=== PATIENT | female | born 1970 | race Caucasian/White ===

== ENCOUNTER → 2022-12-11 13:16 | Outpatient (CLI) | payer BC, SELFPAY ==
--- NOTE | ~2022-12-11 | US_ITS ---
Pelvic ultrasound. Clinical History: Postmenopausal bleeding Technique: Realtime transabdominal and transvaginal scanning of the pelvis was performed. Color flow Doppler and Doppler spectral analysis were performed. Findings: The uterus is anteverted. The endometrial stripe has a thickness of approximately 15 mm. S uture large mass towards the lower uterine segment, measuring approximately 6.6 cm in diameter, which could reflect a large fibroid. Noted ovary seen. No adnexal mass seen. There is no evidence of free fluid in the cul de sac. Impression: Somewhat suboptimal exam, related to body habitus. Suspected large lower uterine segment fibroid versus other mass, measuring approximately 6.6 cm in di ameter. Possible endometrial thickening up to 14 mm, which could reflect endometrial hyperplasia versus endom etrial neoplasm. Consider pelvic MR to better assess for uterine pathology given the suboptimal imaging on this exam. Reviewed, dictated and finalized at [facility]. Impression: Somewhat suboptimal exam, related to body habitus. Suspected large lower uterine segment fibroid versus other mass, measuring appr oximately 6.6 cm in diameter. Possible endometrial thickening up to 14 mm, which could reflect endometrial hy perplasia versus endometrial neoplasm. Consider pelvic MR to better assess for uterine pathology given the suboptimal imaging on this exam.
== END ==
PROVIDERS: PCP Nurse Practitioner; Visit Provider Nurse Practitioner
DX: N95.0 Postmenopausal bleeding (principal); N85.2 Hypertrophy of uterus
CPT/HCPCS: 76830

== ENCOUNTER 2022-12-27 02:10 | Day surgery (SDC) | payer BC, SELFPAY ==
[2022-12-20 10:29] VITALS: BMI 33.6
--- NOTE | 2022-12-20 10:33 | PC.NURSE ---
Report to the Outpatient Waiting Room, entrance under the green pavilion located off [facility], at time 12:00 on date 12/27/22. Planned Procedure Time: 2:00. Time changes happen often and if your time is changed the preop area will call you the afternoon before. - You and your visitor will be asked to self-screen and do not enter if you have any COVID symptoms. - A mask is optional within the hospital at this time. Patients may have clear liquids (water, carbonated beverages, clear teas, apple juice) until 3 hours prior to surgery with a maximum of 20 ounces. - No food from midnight until time of surgery Take the following medications with a SIP of water the morning of surgery: NONE DO NOT STOP ANY OF YOUR OTHER PRESCRIPTION MEDICATIONS PRIOR TO SURGERY ?EXCEPT THE FOLLOWING Medications to discontinue per physician: VITAMINS/SUPPLEMENTS Date to take last dose: 12/23/22 Please no make-up, nail swiss, hairspray, perfume, deodorant, or body powder the day of surgery. No jewelry (including any body piercings) or valuables the day of surgery, leave them at home. Please take a shower or bath the night before, or the morning of, surgery with an antibacterial soap. Wear comfortable, loose fitting clothing. - Jewelry must be removed prior to entering the operating room. Rings and piercings that are not removed may be cut off. - The hospital will not accept responsibility for valuables. - Please leave all valuables, including medications, at home the day of surgery. If you are going home after surgery, a licensed rolloff truck driver must drive you home. - NO public transportation without another adult if you receive anesthesia. - We recommend that an adult stay with you for 24 hours following discharge. - We also recommend that you do not drive, make important decision, drink alcoholic beverages, or take any drugs that were not prescribed by your health care provider for at least 24 hours after your discharge time. Follow any additional instructions given to you from your surgeon. If you or anyone in your household have experienced Covid symptoms in the past week, please notify your surgeon or the nurse liaison at the phone number below for possible testing. Telephone instructions given to PT - SEGUN MIRANDA and asked if any additional questions and then verbalized understanding. Patient advised to call surgeon office or pre surgery nurse liaison [phone] if any additional questions.
[2022-12-27] MEDS: ACETAMINOPHEN 500 MG TABLET 1000 MG PO (12:26)
[2022-12-27 12:41] VITALS: BP 145/87; PULSE 78; RESP 16; TEMP 36.4; O2SAT 94
[2022-12-27 12:54] LABS: INR 0.9; Prothrombin Time 11.9 Seconds (11.1-14.7)
[2022-12-27 12:55] LABS: Partial Thromboplastin Time 28.6 SECONDS (22.3-36.8)
[2022-12-27] MEDS: LACTATED RINGERS 1,000 ML 30 ML IV CONT (13:00)
--- NOTE | 2022-12-27 13:08 | P.PNAN_ITS ---
Anes - Initial Pre Proc Eval Procedure: Operation Date: 12/27/22 14:00 Proposed Procedures p Hysteroscopy Dilation and Curettage - Sara Truong MD Date/Time: 12/27/22 13:08 Surgeon: Sara Truong MD Pre Op Diagnosis: Post Menopausal Bleeding Patient Data Age: 52 Gender: F Height: 1.7 m Weight: 95.6 kg Last Vital Signs Temp 36.4 C L 12/27/22 12:41 Pulse 78 12/27/22 12:41 Resp 16 12/27/22 12:41 BP 145/87 H 12/27/22 12:41 Pulse Ox 94 12/27/22 12:41 O2 Del Method Room Air 12/27/22 12:41 Allergies Allergy/AdvReac Type Severity Reaction Status Date / Time erythromycin base AdvReac Other Verified 12/27/22 12:19 Home Medications Medication Instructions Recorded Confirmed Type multivitamin 1 tablet PO DAILY 12/20/22 12/27/22 History Laboratory Tests 12/27/22 12:25 PT 11.9 Seconds (11.1-14.7) INR 0.9 APTT 28.6 SECONDS (22.3-36.8) Patient hx anesthesia problems: none and other (motion sickness) Family hx anesthesia problems: none Results Review: All pre-operative results and documents have been reviewed as part of the pre- operative evaluation. [facility] Social History Social History Smoking packs per day: 1 Smoking cigarettes per day: 20.0 Years smoked: 10 Smoking pack-years: 10.00 Smoking status: Former smoker Tobacco type: cigarettes Smoking end date: 02/20/92 Alcohol intake: never Substance use: never Substance use type: does not use Living arrangements: with family Spiritual care concerns: No Anes - Eval Final PreProcedure Day of Procedure 12/27/22 13:08 Patient weight: overweight Heart: regular rate and rhythm Lungs: clear to auscultation Airway: Mallampati scale class II Neurological: alert and oriented Last oral intake: >/= 8 hours ASA classification: II Emergent: no Anesthetic plan: proceed Anesthesia type and monitoring: general GIVS and standard monitoring Results Review: All pre-operative results and documents have been reviewed as part of the pre- operative evaluation. Informed Consent: The patient's anesthetic plan and its attendant risks and benefits were discussed with the patient/family/POA. Questions were solicited and answers provided to the satisfaction of the patient/family/POA.
--- NOTE | 2022-12-27 13:46 | WPDHPUPDATE1 ---
History and Physical Update Update Date/Time: 12/27/22 13:46 History and Physical has been reviewed, including an updated exam of the patient. There are NO changes in the patient's condition. Risks, benefits, and alternatives have been discussed and questions answered. Patient agrees to proceed with procedure.
--- NOTE | 2022-12-27 13:46 | PM.HPGS ---
History of Present Illness History of Present Illness Consent: Risks, benefits, and alternatives have been discussed and questions answered. Patient agrees to proceed with procedure. Chief complaint: Post Menopausal Bleeding Narrative: Teri Mcdowell is a 52 year old female with postmenopausal bleeding. Pelvic u/s with thickened endometrium at 15mm. Incidental finding of fibroids. It was rec. to proceed with D&C hysteroscopy. Risks of infection, bleeding, perforation, and possible pathology reviewed. Patient agrees to proceed. Review of Systems Review of Systems: not repeated day of surgery; patient states no changes in status [facility] Past Medical History Medical History (Updated 12/27/22 @ 13:50 by Sara Truong MD) Non-alcoholic fatty liver disease (normal spontaneous vaginal delivery) x1 Vacuum-assisted vaginal delivery x1 Social History Social History Smoking packs per day: 1 Smoking cigarettes per day: 20.0 Years smoked: 10 Smoking pack-years: 10.00 Smoking status: Former smoker Tobacco type: cigarettes Smoking end date: 02/20/92 Alcohol intake: never Substance use: never Substance use type: does not use Living arrangements: with family Spiritual care concerns: No Meds Home Medications and Allergies Home Medications Medication Instructions Recorded Confirmed Type multivitamin 1 tablet PO DAILY 12/20/22 12/27/22 History Allergies Allergy/AdvReac Type Severity Reaction Status Date / Time erythromycin base AdvReac Other Verified 12/27/22 12:19 Vital Signs Vital Signs - 24 hr 12/27/22 12:41 Temperature 97.5 F L Pulse Rate 78 Respiratory Rate 16 Blood Pressure 145/87 H Pulse Oximetry 94 Oxygen Delivery Room Air Exam Const: General: healthy appearing and alert Orientation/consciousness: patient oriented x3 Resp: Effort & Inspection: normal respiratory effort GI: GI Palp: Yes Soft to palpation, No Tenderness to palpation present (GI) and No Palpable mass present : External Female Exam: normal external appearance Speculum Exam - Vagina: normal appearance of the vagina and normal vaginal discharge Speculum Exam - Cervix: normal appearance of the cervix Bimanual exam- vagina & uterus: consistency normal and enlarged (14 wk size) Bimanual Exam- Adnexa, other: normal adnexae and No adnexal tenderness Neuro: General: patient oriented x3 Assessment and Plan Assessment and plan (1) Post-menopausal bleeding: Code(s): N95.0 - Postmenopausal bleeding Status: Acute Assessment and Plan: Plan to proceed with D&C hysteroscopy
[2022-12-27 14:59] VITALS: BP 92/72; PULSE 77; RESP 16; O2SAT 96
--- NOTE | 2022-12-27 15:03 | W.PM.PROC2 ---
Procedure Note - Detailed Date of Procedure 12/27/22 Pre-op Diagnosis Post Menopausal Bleeding Post-op Diagnosis Same Procedure Performed D&C hysteroscopy with resection of uterine lesion Surgeon Sara Truong MD Anesthesia MAC Findings Uterus is enlarged measuring 13cm. There is a polyp appearing mass in the cervix attached at the lower uterine segment. The fundus is full of necrotic appearing vascular tissue. Description of Procedure The patient was taken to the operating room and placed under anesthesia in the dorsal lithotomy position. She was prepped and draped in the usual sterile fashion. [place] speculum was placed in the vagina and the cervix grasped on the anterior lip with a tenaculum. The uterus is sounded to 13cm. The diagnostic hysteroscope was placed. The above-stated findings are noted. The Aveeta resection device is opened and placed and under direct visualization the polyp and the necrotic tissue are removed until the fluid imbalance became 950cc. At that point the tissue mainly removed and decision was made to stop due to fluid imbalance. A large amount of tissue is in the specimen catch device. The instruments are removed and the sharp curette used to curette endometrium until a good uterine cry was noted in all areas. The endometrium felt fairly smooth with with the curette with no significant additional tissue obtained. The speculum and tenaculum were then removed and the patient was awakened from anesthesia and taken to recovery in stable condition. Estimated Blood Loss 50 Drains No Packing No Pathology Yes (Endometrial shavings and curettings) Complications No immediate complications Condition Stable Disposition PACU
[2022-12-27 15:20] VITALS: BP 103/73; PULSE 75; RESP 14; O2SAT 100
[2022-12-27] MEDS: oxyCODONE HCL (*CRX) 5 MG TAB IR PO (15:27)
[2022-12-27 15:45] VITALS: BP 130/61; PULSE 64; RESP 14
== END 2022-12-27 15:55 | disposition home or self-care (01) ==
PROVIDERS: PCP Internal Medicine; Visit Provider Obstetrics & Gynecology Gynecology
PROC: 0U5B8ZZ Destruction of Endometrium, Via Natural or Artificial Opening Endoscopic (ICD-10-PCS; CPT 58563; principal; 2022-12-27 14:00)
DX: C54.1 Malignant neoplasm of endometrium (principal); N84.1 Polyp of cervix uteri; N85.2 Hypertrophy of uterus; Z87.891 Personal history of nicotine dependence
CPT/HCPCS: 58558; 36415; 85610; 85730; 88305; 88342; A9270; J2250; J3010; J7120